=== PATIENT | female | born 1985 | race Two or more races ===

== ENCOUNTER 2024-07-28 06:13 | Inpatient (IN) ==
[2024-07-28] MEDS: NOZIN NASAL SANITIZER TP ONE (06:37)
[2024-07-28] MEDS: VERSED ONE (07:32)
[2024-07-28] MEDS: DILAUDID INJ ONE (07:32)
[2024-07-28] MEDS: ANCEF VIAL 1 GRAM IVP ONE (07:32)
[2024-07-28] MEDS: NS 100 ML IV 100 ML ONE (07:32)
[2024-07-28] MEDS: XYLOCAINE 2 % (PLAIN) ONE (07:32)
[2024-07-28] MEDS: MARCAINE SPINAL ONE (07:33)
[2024-07-28] MEDS: EPHEDRINE SULFATE INJ ONE (07:52)
[2024-07-28] MEDS: PITOCIN ONE ×2 (08:16→08:17)
[2024-07-28] MEDS ORDERED: MORPHINE SULFATE INJ 2 MG INJ IVP PRN (08:37)
[2024-07-28] MEDS ORDERED: PERCOCET TAB 5/325 MG PO PRN (08:37)
[2024-07-28] MEDS ORDERED: BENADRYL INJ 50 MG VIAL IVP PRN ×3 (08:37→08:46)
[2024-07-28] MEDS ORDERED: MOTRIN TAB 800 MG PO PRN (08:37)
[2024-07-28] MEDS ORDERED: REGLAN INJ 10 MG VIAL IVP PRN (08:45)
[2024-07-28] MEDS ORDERED: ZOFRAN INJ 4 MG VIAL IVP PRN ×2 (08:45→08:46)
[2024-07-28] MEDS ORDERED: NARCAN INJ IVP PRN (08:46)
[2024-07-28 09:55] LABS: BILIRUBIN,URINE NEGATIVE (NEGATIVE); BLOOD/HEMOGLOBIN,URINE NEGATIVE (NEGATIVE); GLUCOSE, URINE NEGATIVE (NEGATIVE); KETONES,URINE NEGATIVE (NEGATIVE); LEUKOCYTE ESTERASE ,URINE 2+ (NEGATIVE); NITRITES,URINE NEGATIVE (NEGATIVE); PH,URINE 6.5 (5.0 - 8.0); PROTEIN,URINE 1+ (NEGATIVE); UROBILINOGEN,URINE NORMAL (NORMAL)
[2024-07-28] MEDS: PRENATAL PLUS PO SCH (10:05)
[2024-07-28] MEDS: ZOFRAN INJ 4 MG VIAL IVP SCH (10:09)
[2024-07-28 10:23] LABS: APPEARANCE,URINE SLIGHTLY HAZY (CLEAR); BACTERIA,URINE 1+ /HPF (NEGATIVE); COLOR,URINE PALE YELLOW (YELLOW); RBC,URINE NONE SEEN /HPF (0-3); SQUAMOUS EPITHELIAL CELL,UR FEW /HPF (NEGATIVE)
[2024-07-28] MEDS: D5 1/2 NS 1,000 ML 1,000 ML with PITOCIN 20 UNITS IV SCH (14:19)
[2024-07-28] MEDS: LR 1,000 ML IV 1,000 ML IV SCH (16:26)
[2024-07-28] MEDS: ADACEL or BOOSTRIX TDaP VACCINE IM ONE (17:09)
[2024-07-29] MEDS: PERCOCET TAB 5/325 MG PO PRN ×2 (03:21→10:10)
[2024-07-29 05:34] LABS: HEMATOCRIT 23.8 % (36.0-47.0); HEMOGLOBIN 7.8 g/dL (12.0-16.0)
[2024-07-29] MEDS: INFeD or DEXFERRUM 25 MG in NS 100 ML IV 100 ML IV ONE (10:05)
[2024-07-29] MEDS: MYLICON TAB 80 MG CHEW PO PRN (10:46)
[2024-07-29] MEDS: INFeD or DEXFERRUM 975 MG in NS 500 ML IV 500 ML IV ONE (11:51)
[2024-07-29] MEDS: OXYTOCIN 20 UNIT/1,000 ML-NS 20 UNIT/1,000 ML PLAST..BAG IV SCH (15:23)
[2024-07-29] MEDS: D5 1/2 NS 1,000 ML 1,000 ML IV SCH (15:23)
[2024-07-30 04:51] VITALS: PULSE 81
[2024-07-30 09:37] VITALS: RESP 18
[2024-07-30 13:24] VITALS: BP 105/54; TEMP 98.6; O2SAT 95
== END 2024-07-30 10:20 | disposition home or self-care (01) | DRG 785 ==
LOC: LD 06:13 → MED/SURG 09:09
PROVIDERS: ADMIT Obstetrics & Gynecology Obstetrics; ATTEND Obstetrics & Gynecology Obstetrics
DX: O24.410 Gestational diabetes mellitus in pregnancy, diet controlled; Z30.2 Encounter for sterilization; Z3A.39 39 weeks gestation of pregnancy; Z37.0 Single live birth; O34.211 Maternal care for low transverse scar from previous cesarean delivery